=== PATIENT | female | born 1945 | race Native Hawaiian/Other Pacific Islander ===

== ENCOUNTER 2017-04-05 13:05 | Outpatient (CLI) | payer OTHER ==
[~2017-04-05 13:05] MED LIST: CLONIDINE0.2 MG PO; HYZAAR1 TA1 PO; PANT40TA PO
== END 2017-04-05 19:14 | disposition home or self-care (01) ==
LOC: MAMMO 13:05
DX: Z12.31 Encounter for screening mammogram for malignant neoplasm of breast (principal)

== ENCOUNTER → 2017-11-05 08:42 | Outpatient (CLI) | payer OTHER | END | disposition home or self-care (01) | LOC: AMB 08:42 | DX: Z04.8 Encounter for examination and observation for other specified reasons (principal) ==

== ENCOUNTER 2018-02-13 11:53 | Outpatient (CLI) | payer OTHER ==
[2018-02-13 12:29] LABS: PLATELET COUNT 291 K/uL (152-353)
[2018-02-13 13:16] LABS: POTASSIUM 3.5 mmol/L (3.6-5.2)
== END 2018-02-13 19:40 | disposition home or self-care (01) ==
LOC: LABW 11:53
PROVIDERS: Internal Medicine
DX: R53.1 Weakness (principal); M79.1 Myalgia
CPT/HCPCS: 36415; 80053; 85027; 85651; 86140

== ENCOUNTER 2019-04-28 13:40 | Outpatient (CLI) | payer OTHER | END 2019-04-28 20:46 | disposition home or self-care (01) | LOC: MRI 13:40 | DX: M54.17 Radiculopathy, lumbosacral region (principal) ==

== ENCOUNTER 2020-02-23 17:12 | Emergency (ER) | payer OTHER ==
[~2020-02-23] VITALS: Ht 162.6 cm; Wt 90.7 kg
[2020-02-23 20:35] VITALS: BP 202/119; TEMP 98.8
== END 2020-02-23 20:35 | disposition home or self-care (01) ==
LOC: ED 17:12
DX: S61.452A Open bite of left hand, initial encounter (principal); W54.0XXA Bitten by dog, initial encounter; Y92.89 Other specified places as the place of occurrence of the external cause
CPT/HCPCS: 90471; 90715; 96372; 99283; J0690; J1885

== ENCOUNTER 2020-05-14 13:36 | Outpatient (CLI) | payer OTHER | END 2020-05-14 19:24 | disposition home or self-care (01) | LOC: MRI 13:36 | PROVIDERS: ATTEND Internal Medicine | DX: M51.16 Intervertebral disc disorders with radiculopathy, lumbar region (principal); M79.604 Pain in right leg; R20.0 Anesthesia of skin ==

== ENCOUNTER 2022-02-27 17:00 | Inpatient (IN) | payer OTHER ==
[~2022-02-27 17:00] MED LIST changes: -PANT40TA PO; +PANTOPRAZOLE 40MG TA PO
== END 2022-03-07 09:27 | disposition home health service (06) ==
LOC: PAVB 17:00
PROVIDERS: ADMIT Internal Medicine; ATTEND Internal Medicine
DX: J96.01 Acute respiratory failure with hypoxia (principal); J15.0 Pneumonia due to Klebsiella pneumoniae; G92.8 Other toxic encephalopathy; N17.9 Acute kidney failure, unspecified; M62.81 Muscle weakness (generalized); R26.2 Difficulty in walking, not elsewhere classified; R26.81 Unsteadiness on feet; Z74.1 Need for assistance with personal care

== ENCOUNTER → 2022-02-28 | Outpatient (CLI) | payer OTHER ==
[~2022-02-28] MED LIST changes: +PANT40TA PO; -PANTOPRAZOLE 40MG TA PO
== END ==
LOC: LAB 07:08
PROVIDERS: ATTEND Internal Medicine
DX: J96.01 Acute respiratory failure with hypoxia (principal)
CPT/HCPCS: 87081

== ENCOUNTER 2022-03-15 10:30 | Inpatient (IN) | payer OTHER ==
[~2022-03-15] VITALS: Ht 162.6 cm; Wt 101.9 kg
[~2022-03-15 10:30] MED LIST changes: -PANT40TA PO; +PANTOPRAZOLE 40MG TA PO
[2022-03-15 11:13] LABS: PLATELET COUNT 247 K/uL (152-353)
[2022-03-15 12:00] VITALS: BP 152/88; TEMP 98.4
[2022-03-15 12:14] LABS: POTASSIUM 3.2 mmol/L (3.6-5.2)
[2022-03-15 12:19] VITALS: BP 152/88; TEMP 98.4; Ht 162.6 cm; Wt 101.9 kg
[2022-03-15] MEDS ORDERED: IPRATROPIUM/ INH (12:58)
[2022-03-15] MEDS ORDERED: GABA300C2 PO (12:59)
[2022-03-15] MEDS ORDERED: TRAMADOL HYDROC50 MG PO (13:00)
[2022-03-15] MEDS ORDERED: ESCI10TA PO (13:02)
[2022-03-15] MEDS ORDERED: ONDANSETRON ODT PO (13:03)
[2022-03-15] MEDS ORDERED: OXYB5TAB64 PO (13:04)
[2022-03-15] MEDS ORDERED: TIZA4TAB5 PO (13:05)
[2022-03-15] MEDS ORDERED: APIX1TAB PO (13:05)
[2022-03-15] MEDS ORDERED: TRAZ50TA36 PO (13:06)
[2022-03-15] MEDS ORDERED: CIPR500T PO (13:07)
[2022-03-15] MEDS ORDERED: HYDROMORPHONE HY4 MG PO (13:07)
[2022-03-15] MEDS ORDERED: MONT10TA PO (13:08)
[2022-03-15] MEDS ORDERED: BUSPIRONE10 MG PO (13:08)
[2022-03-15 16:13] VITALS: BP 151/83; TEMP 98.7
[2022-03-15 19:50] VITALS: BP 121/67; TEMP 98.6
[2022-03-16] VITALS: BP 110/51; TEMP 98.1
[2022-03-16 03:59] VITALS: BP 119/50; TEMP 98.3
[2022-03-16 07:31] LABS: PLATELET COUNT 277 K/uL (152-353)
[2022-03-16 08:01] VITALS: BP 125/67; TEMP 98.3
[2022-03-16 12:00] VITALS: BP 147/87; TEMP 98
== END 2022-03-16 15:45 | disposition short-term general hospital (02) | DRG 301 ==
LOC: MED/SURG 10:30
PROVIDERS: ADMIT Internal Medicine; ATTEND Internal Medicine
DX: I82.492 Acute embolism and thrombosis of other specified deep vein of left lower extremity (principal); J44.9 Chronic obstructive pulmonary disease, unspecified; F41.8 Other specified anxiety disorders; E87.6 Hypokalemia; E11.22 Type 2 diabetes mellitus with diabetic chronic kidney disease; I12.9 Hypertensive chronic kidney disease with stage 1 through stage 4 chronic kidney disease, or unspecified chronic kidney disease; N18.32 Chronic kidney disease, stage 3b; E11.42 Type 2 diabetes mellitus with diabetic polyneuropathy
CPT/HCPCS: 80048; 80053; 85027; 87635; 94664; 94760; J0696; J1650; J2405; J3370; J3490; U0003

== ENCOUNTER 2022-03-23 10:33 | Outpatient (CLI) | payer OTHER ==
[~2022-03-23 10:33] MED LIST changes: +APIX1TAB PO; +BUSPIRONE10 MG PO; +CIPR500T PO; +ESCI10TA PO; +GABA300C2 PO; +HYDROMORPHONE HY4 MG PO; +IPRATROPIUM/ INH; +MONT10TA PO; +ONDANSETRON ODT PO; +OXYB5TAB64 PO; +TIZA4TAB5 PO; +TRAMADOL HYDROC50 MG PO; +TRAZ50TA36 PO
[2022-03-23 11:12] LABS: PLATELET COUNT 169 K/uL (152-353)
== END 2022-03-23 23:10 | disposition home or self-care (01) ==
LOC: LABW 10:33
PROVIDERS: ATTEND Internal Medicine Gastroenterology
DX: K74.69 Other cirrhosis of liver (principal); K64.0 First degree hemorrhoids; R82.998 Other abnormal findings in urine
CPT/HCPCS: 36415; 85027; 87077; 87086; 87088; 87186

== ENCOUNTER 2022-03-27 10:02 | Outpatient (CLI) | payer OTHER | END 2022-03-27 19:33 | disposition home or self-care (01) | LOC: LAB 10:02 | PROVIDERS: ATTEND Internal Medicine Gastroenterology | DX: K74.69 Other cirrhosis of liver (principal); K64.0 First degree hemorrhoids | CPT/HCPCS: 82272 ==

== ENCOUNTER 2022-09-06 07:02 | Outpatient (CLI) | payer OTHER ==
[2022-09-06 07:43] LABS: PLATELET COUNT 346 K/uL (152-353)
[2022-09-06 07:47] LABS: POTASSIUM 3.5 mmol/L (3.6-5.2)
== END 2022-09-06 19:01 | disposition home or self-care (01) ==
LOC: RAD 07:02
PROVIDERS: ATTEND Internal Medicine
DX: E11.9 Type 2 diabetes mellitus without complications (principal); R06.09 Other forms of dyspnea
CPT/HCPCS: 36415; 80053; 80061; 81002; 83036; 83880; 84439; 84443; 85027; 85379

== ENCOUNTER 2022-09-07 08:46 | Outpatient (CLI) | payer OTHER ==
[~2022-09-07] VITALS: Ht 33 cm; Wt 0.5 kg
[2022-09-07 08:53] VITALS: BP 117/47; TEMP 98.3
[2022-09-07 11:02] VITALS: BP 139/54; TEMP 98.3
[2022-09-07 12:02] VITALS: BP 125/89; TEMP 97.7
[2022-09-07 13:23] VITALS: BP 116/54; TEMP 98.4
[2022-09-07 14:23] VITALS: BP 134/67; TEMP 99
[2022-09-07 15:23] VITALS: BP 154/81; TEMP 98.4
[2022-09-08 08:05] VITALS: BP 137/83; TEMP 98.1
[2022-09-08 08:42] LABS: PLATELET COUNT 231 K/uL (152-353)
== END 2022-09-07 20:00 | disposition home or self-care (01) ==
LOC: INF 08:46
PROVIDERS: ATTEND Internal Medicine
DX: D64.89 Other specified anemias (principal)
CPT/HCPCS: 36415; 36430; 85027; 86850; 86900; 86901; 86922; P9016

== ENCOUNTER 2022-09-08 08:30 | Outpatient (CLI) | payer OTHER ==
[~2022-09-08] VITALS: Ht 162.6 cm; Wt 95.3 kg
== END 2022-09-08 19:14 | disposition home or self-care (01) ==
LOC: INF 08:30
PROVIDERS: ATTEND Internal Medicine
DX: D64.89 Other specified anemias (principal)
CPT/HCPCS: 36430; 86922; P9016

== ENCOUNTER 2022-10-27 11:59 | Outpatient (CLI) | payer OTHER | END 2022-10-27 19:02 | disposition home or self-care (01) | LOC: RAD 11:59 | PROVIDERS: ATTEND Internal Medicine | DX: M25.562 Pain in left knee (principal); M79.605 Pain in left leg ==

== ENCOUNTER 2022-11-08 08:55 | Outpatient (CLI) | payer OTHER ==
[2022-11-08 09:11] LABS: PLATELET COUNT 190 K/uL (152-353)
== END 2022-11-08 22:05 | disposition home or self-care (01) ==
LOC: LABW 08:55
PROVIDERS: ATTEND Internal Medicine Gastroenterology
DX: D50.8 Other iron deficiency anemias (principal)
CPT/HCPCS: 36415; 85008; 85027

== ENCOUNTER 2022-11-11 09:40 | Emergency (ER) | payer OTHER ==
[~2022-11-11] VITALS: Ht 162.6 cm; Wt 95.3 kg
[2022-11-11 09:50] VITALS: BP 140/88; TEMP 98.5
== END 2022-11-11 11:05 | disposition home or self-care (01) ==
LOC: ED 09:40
PROC: 2W3MX1Z Immobilization of Left Lower Extremity using Splint (ICD-10-PCS; principal; 2022-11-11)
DX: M25.562 Pain in left knee (principal)
CPT/HCPCS: 99283

== ENCOUNTER 2022-11-14 10:27 | Outpatient (CLI) | payer OTHER ==
[2022-11-14 10:53] LABS: PLATELET COUNT 181 K/uL (152-353)
[2022-11-14 11:00] LABS: POTASSIUM 3.1 mmol/L (3.6-5.2)
== END 2022-11-14 19:09 | disposition home or self-care (01) ==
LOC: LABW 10:27
PROVIDERS: ATTEND Specialist
DX: I10 Essential (primary) hypertension (principal); R07.89 Other chest pain; E11.9 Type 2 diabetes mellitus without complications
CPT/HCPCS: 36415; 80048; 85027

== ENCOUNTER 2022-11-22 09:12 | Outpatient (CLI) | payer OTHER ==
[2022-11-22 09:27] LABS: PLATELET COUNT 205 K/uL (152-353)
[2022-11-22 12:20] LABS: POTASSIUM 3.5 mmol/L (3.6-5.2)
== END 2022-11-22 20:07 | disposition home or self-care (01) ==
LOC: LABW 09:12
PROVIDERS: ATTEND Internal Medicine
DX: D64.89 Other specified anemias (principal); I10 Essential (primary) hypertension; E11.9 Type 2 diabetes mellitus without complications; R07.89 Other chest pain
CPT/HCPCS: 36415; 80048; 85027

== ENCOUNTER 2023-03-01 16:16 | Outpatient (CLI) | payer OTHER ==
[2023-03-01 16:40] LABS: PLATELET COUNT 178 K/uL (152-353)
[2023-03-01 16:53] LABS: POTASSIUM 3.4 mmol/L (3.6-5.2)
== END 2023-03-01 19:30 | disposition home or self-care (01) ==
LOC: LABW 16:16
PROVIDERS: ATTEND Internal Medicine Gastroenterology
DX: D50.8 Other iron deficiency anemias (principal)
CPT/HCPCS: 36415; 80053; 85027